=== PATIENT | female | born 1960 | race Caucasian/White ===

== ENCOUNTER → 2016-06-21 | Outpatient (CLI) | payer OTHER ==
[~2016-06-21] MED LIST: ALBUTEROL17 GM INH; CLARITIN10 M3 PO; COCONUT OIL100 GM; DIAZEPAM PO; FLOVENT7.9 GM; GABAPENTIN300 M2 PO; IBUPROFEN600 MG PO; LINZESS145 MCG PO; LIPITOR40 MG PO; MONTELUKAST SOD10 MG PO; OMEPRAZOLE40 M1 PO; PAXIL PO; TEMOVATE 0.05%15 G1 EXT; TRAMADOL HCL50 M1 PO; VITAMIN D350000 UNIT PO; ZANAFLEX PO; ZOFRAN ODT4 M1 PO
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
== END | disposition home or self-care (01) ==
LOC: CRAD 10:27
DX: M54.2 Cervicalgia (principal); M25.511 Pain in right shoulder; M54.5 Low back pain; M41.86 Other forms of scoliosis, lumbar region; M47.816 Spondylosis without myelopathy or radiculopathy, lumbar region; M19.011 Primary osteoarthritis, right shoulder; M47.812 Spondylosis without myelopathy or radiculopathy, cervical region
CPT/HCPCS: 72040; 72100; 73030

== ENCOUNTER → 2016-08-01 | Outpatient (CLI) | payer OTHER ==
--- NOTE | ~2016-08-01 | CT98 ---
[facility] A Service of [facility] & [facility] RADIOLOGY TEXT RESULTS PATIENT: ADAN MCKEON LOCATION: [facility] : 60 UNIT #: [id number] AGE: [address]: DIANE GUPTA SEX: F ORDER DR: [id number] [facility] [address]. [place], [place] [address] [id number] O MR#: [id number] Acc #: [id number] NAME: ADAN MCKEON : 1960 SEX: F STUDY DATE/TIME: 08/01/2016 15:44 UNIT: [facility] ROOM: STUDY DESCRIPTION: CT Lumbar Spine Wo Cont Attending Physician: Vernon Calderón Referring Physician: Vernon Calderón Ordering Physician: Vernon Calderón Primary Care Physician: Vernon Calderón MEDICAL IMAGING REPORT This report is preliminary unless electronic signature is present EXAM Lumbar spine CT no contrast, 08/01/2016 [address]URE Axial unenhanced lumbar CT with multiplanar reformats. This CT exam was performed with one or more of the following radiation dose reduction techniques: automatic exposure control, adjustment of mA and/or kV according to patient size, and iterative reconstruction. COMPARISON None HISTORY Low back pain. Symptoms for 30 years with left greater than right leg pain and intermittent right toe numbness. FINDINGS Alignment is normal. There is mild degenerative change but no fracture or bone erosion or destruction. The paraspinous tissues are unremarkable. At L1-2, there is no canal stenosis or foraminal stenosis. At L2-3, there is a disc bulge and minimal canal narrowing and no foraminal narrowing. At 3-4, again there may be minimal if any discogenic canal narrowing and there is no foraminal narrowing. At 4-5, there is disc and endplate change and facet arthropathy and mild canal stenosis. There is mild or awcy-ch-rujwghor bilateral foraminal narrowing. [facility] A Service of [facility] & [facility] RADIOLOGY TEXT RESULTS PATIENT: ADAN MCKEON LOCATION: [facility] : 60 UNIT #: [id number] AGE: [address]: DIANE GUPTA SEX: F ORDER DR: At 5-1, there is no canal narrowing or foraminal narrowing. IMPRESSION Modest degenerative changes. At 4-5, there is mild canal stenosis and mild or ztva-fv-obcjxzvt bilateral foraminal narrowing. The exam is otherwise essentially unremarkable. No acute-appearing abnormality at any level. Dictated by... Ran Garibay M.D. THIS IS AN ELECTRONICALLY VERIFIED REPORT Ran Garibay M.D. at 08/08/2016 10:40 AM ROB/akanksha TD: 08/02/2016 12:13 JOB #: [id number] MEDICAL IMAGING REPORT Page 1 of 1 COPY
== END | disposition home or self-care (01) ==
LOC: CCAT 14:36
DX: M54.5 Low back pain (principal); M54.2 Cervicalgia; M47.816 Spondylosis without myelopathy or radiculopathy, lumbar region; M48.06 Spinal stenosis, lumbar region
CPT/HCPCS: 72131

== ENCOUNTER → 2016-08-22 | Outpatient (CLI) | payer OTHER ==
--- NOTE | ~2016-08-22 | US5 ---
[facility] A Service of [facility] RADIOLOGY TEXT RESULTS PATIENT: ADAN MCKEON LOCATION: [facility] : 60 UNIT #: [id number] AGE: [address]: Yuval Lowery MD SEX: F ORDER DR: [id number] [facility] [address]. [place], [place] [address] [id number] O MR#: [id number] Acc #: [id number] NAME: ADAN MCKEON : 1960 SEX: F STUDY DATE/TIME: 08/22/2016 9:33 UNIT: [facility] ROOM: STUDY DESCRIPTION: US Abdominal Complete Attending Physician: Yuval Lowery M.D. Referring Physician: Yuval Lowery M.D. Ordering Physician: Yuval Lowery M.D. Primary Care Physician: Vernon Calderón MEDICAL IMAGING REPORT This report is preliminary unless electronic signature is present EXAM Abdominal ultrasound complete 08/22/2016 INDICATIONS 56-year-old female with history of abdominal pain, nausea, vomiting and distension intermittently for 25 years. History of hypertension and hysterectomy. Ascites. TECHNIQUE Sonographic imaging of the abdomen was performed. No comparisons. FINDINGS Segmentally visualized aorta and IVC are unremarkable. Visualized pancreas unremarkable. Liver measures 14.9 cm long axis. No focal liver mass, ascites or intrahepatic ductal dilatation. The gallbladder is sonographically unremarkable. Extrahepatic common bile duct measures approximately 2 mm. The kidneys are unremarkable. The right measures 11 cm long axis and the left 11.9 cm. No shadowing stone on either side. Spleen measures about 9.2 cm long axis. Equivocal mild fatty infiltration of the liver. IMPRESSION 1. Equivocal mild fatty infiltration of the liver otherwise negative abdominal ultrasound. Dictated by... Eduar Vega M.D. THIS IS AN ELECTRONICALLY VERIFIED REPORT Eduar Vega M.D. at 08/22/2016 7:08 PM Arcadio [facility] A Service of [facility] RADIOLOGY TEXT RESULTS PATIENT: ADAN MCKEON LOCATION: [facility] OF [facility] #: [id number] : 60 UNIT #: [id number] AGE: [address]: Yuval Lowery MD SEX: F ORDER DR: TD: 08/22/2016 15:23 JOB #: [id number] MEDICAL IMAGING REPORT Page 1 of 1 COPY
[2016-08-22 10:38] LABS: HEMATOCRIT 41.5 % (35.0-45.0); MEAN CORPUSCULAR HEMOGLOBIN 32.1 PG (28-34); MEAN CORPUSCULAR HGB CONC 33.8 g/dL (30-36); MEAN PLATELET VOLUME 7.6 FL (6.5-11.5); RED BLOOD COUNT 4.37 X10e (3.90-5.30); RED CELL DISTRIBUTION WIDTH 12.8 % (11.0-15.5); WHITE BLOOD COUNT 7.4 X10e3 (4.0-10.5)
[2016-08-22 11:07] LABS: ALBUMIN SERUM 3.8 g/dL (3.5-5.0); BILIRUBIN,TOTAL 0.4 mg/dL (0.2-2.0); BUN/CREATININE RATIO 16.66; CALCIUM SERUM 9.3 mg/dL (8.4-10.2); CREATININE SERUM 0.6 mg/dL (0.6-1.4); GLOM FILT RATE Estimated 101.9 mL/min (>60); POTASSIUM 4.9 mmol/L (3.5-5.1); PROTEIN TOTAL SERUM 6.9 g/dL (6.0-8.3)
== END | disposition home or self-care (01) ==
LOC: CGUS 09:06
PROVIDERS: Internal Medicine
DX: R18.8 Other ascites (principal); R14.0 Abdominal distension (gaseous); K76.0 Fatty (change of) liver, not elsewhere classified
CPT/HCPCS: 36415; 76700; 80053; 85027

== ENCOUNTER → 2016-10-12 | Day surgery (SDC) | payer OTHER ==
--- NOTE | ~2016-10-12 | OR ---
Unit #: [id number] #: [id number] Patient: ADAN MCKEON [id number] [address] [address] [id number] O MR#: [id number] NAME: ADAN MCKEON ROOM: Date of Procedure: 10/12/2016 Admission Date: 10/12/2016 Surgeon: Yuval Lowery M.D. : 1960 Attending Physician: Yuval Lowery M.D. Primary Care Physician: Vernon Calderón OPERATIVE REPORT PROCEDURES PERFORMED 1. Esophagogastroduodenoscopy with biopsy. 2. Colonoscopy to cecum. INDICATIONS FOR PROCEDURE A 56-year-old with history of polyps in multiple previous occasions and also with history of GERD, Savage esophagus, and dysphagia, undergoing evaluation with upper endoscopy and colonoscopy. MEDICATIONS Monitored anesthesia. POSTOPERATIVE FINDINGS 1. Very small area of Savage's appearing mucosa. Biopsies taken in distal esophagus. 2. Gastritis appears chronic, biopsies taken. 3. Normal duodenum and distal duodenum. 4. Colonoscopy completed to cecum. Prep was poor. Some areas were not well visualized. Visualized part of the colonic mucosa was normal with no polyps or masses. PLAN Repeat colonoscopy in 3 to 5 years. Repeat upper endoscopy in 3 to 5 years. Continue PPI therapy and reflux precautions. DESCRIPTION OF PROCEDURE The patient was explained of the procedure, risks, and benefits along with risks and benefits of anesthesia. She was brought to the endoscopy room. Propofol anesthesia was given. Bite block was placed. The scope was passed down the mouth into esophagus, stomach, duodenum, and distal duodenum. Findings as described. Biopsies were taken. Gently, I pulled it out of the patient's mouth. She tolerated it well. At this time, she was turned on, repositioned for colonoscopy. Rectal exam was done, which was normal. Colonoscope was lubricated, passed up the rectum, advanced under direct vision all the way to the cecum. Cecum was identified by ileocecal valve and appendiceal orifice. Some areas could not be visualized though most of the mucosa was normal and healthy. No polyps were seen. I retroflexed in the rectum. Small hemorrhoids seen. Scope was gently pulled out. She tolerated it well. Unit #: [id number] #: [id number] Patient: ADAN MCKEON Dictated by... Radha Hinojosa/keon TD: 10/13/2016 07:31 JOB #: [id number] CC: Ita Sawant M.D. OPERATIVE REPORT Page 1 of 1 X Yuval Lowery MD X PROCEDURE OPERATIVE NOTE
== END | disposition home or self-care (01) ==
LOC: COPS 10:10
DX: K22.70 Barrett's esophagus without dysplasia (principal); K21.0 Gastro-esophageal reflux disease with esophagitis; K29.50 Unspecified chronic gastritis without bleeding; R13.10 Dysphagia, unspecified; Z86.010 Personal history of colon polyps; K64.9 Unspecified hemorrhoids; J44.9 Chronic obstructive pulmonary disease, unspecified; Z86.73 Personal history of transient ischemic attack (TIA), and cerebral infarction without residual deficits
CPT/HCPCS: 88305; 88312

== ENCOUNTER → 2016-10-13 | Outpatient (CLI) | payer OTHER ==
--- NOTE | ~2016-10-13 | CR58 ---
[facility] A Service of [facility] & [facility] RADIOLOGY TEXT RESULTS PATIENT: ADAN MCKEON LOCATION: [facility] : 60 UNIT #: [id number] AGE: [address]: Kiley Bran SEX: F ORDER DR: [id number] [facility] [address] [place], [place] [address] [id number] O MR#: [id number] Acc #: [id number] NAME: ADAN MCKEON : 1960 SEX: F STUDY DATE/TIME: 10/13/2016 11:28 UNIT: [facility] ROOM: STUDY DESCRIPTION: CR Cervical Spine 2 or 3 Views Attending Physician: Iris Ramirez Referring Physician: Iris Ramirez Ordering Physician: Iris Ramirez Primary Care Physician: Ita Sawant M.D. MEDICAL IMAGING REPORT This report is preliminary unless electronic signature is present EXAM Cervical spine 3 views INDICATIONS Posterior neck pain for a year. COMPARISON 06/21/2016 FINDINGS Neutral view demonstrates normal alignment. There is very little motion on flexion extension but there is no evidence of any dynamic instability. IMPRESSION No dynamic instability, although there is very little motion on flexion and extension Dictated by... Damien Rowan M.D. THIS IS AN ELECTRONICALLY VERIFIED REPORT Damien Rowan M.D. at 10/13/2016 5:04 PM ЕКАТЕРИНА/danay TD: 10/13/2016 13:47 JOB #: [id number] MEDICAL IMAGING REPORT Page 1 of 1 COPY
== END | disposition home or self-care (01) ==
LOC: CRAD 11:11
DX: M50.30 Other cervical disc degeneration, unspecified cervical region (principal)
CPT/HCPCS: 72040

== ENCOUNTER → 2016-10-24 | Outpatient (CLI) | payer OTHER ==
--- NOTE | ~2016-10-24 | MY29 ---
[facility] A Service of [facility] RADIOLOGY TEXT RESULTS PATIENT: ADAN MCKEON LOCATION: [facility] : 60 UNIT #: [id number] AGE: [address]: DIANE GUPTA SEX: F ORDER DR: [id number] [facility] [address] [place], [place] [address] [id number] O MR#: [id number] Acc #: [id number] NAME: ADAN MCKEON : 1960 SEX: F STUDY DATE/TIME: 10/24/2016 11:53 UNIT: [facility] ROOM: STUDY DESCRIPTION: MY NOHEMI SCREENING W/ CAD BILAT Attending Physician: Vernon Calderón Referring Physician: Vernon Calderón Ordering Physician: Vernon Calderón Primary Care Physician: Ita Sawant M.D. MEDICAL IMAGING REPORT This report is preliminary unless electronic signature is present EXAM Digital screening mammogram, 10/24/2016 HISTORY 56-year-old woman positive family history, sister age 53. Annual screening. Patient indicates left breast mass 2 years ago. COMPARISON Mammograms now available from [place], [place], 02/18/2010 and 06/10/2014. FINDINGS Digital imaging of each breast was completed utilizing screening protocol. Review includes FDA-approved CAD device. Breast parenchyma is partially fatty replaced. Minimal residual parenchymal densities are stable bilaterally. I see no breast mass. There are no suspicious microcalcifications and no architectural deformity. IMPRESSION Negative mammogram. Annual screening recommended. Patients over the age of 40 are entered into a reminder system with target due date for the next mammogram. A result letter will also be sent to the patient. BIRADS: 1 Negative Dictated by... Jackson Lafleur M.D. THIS IS AN ELECTRONICALLY VERIFIED REPORT Jackson Lafleur M.D. at 11/09/2016 3:13 PM JAYANT/akanksha [facility] A Service of [facility] RADIOLOGY TEXT RESULTS PATIENT: ADAN MCKEON LOCATION: [facility] : 60 UNIT #: [id number] AGE: [address]: DIANE GUPTA SEX: F ORDER DR: TD: 11/09/2016 14:53 JOB #: [id number] MEDICAL IMAGING REPORT Page 1 of 1 COPY
== END | disposition home or self-care (01) ==
LOC: CWCC 11:15
DX: Z12.31 Encounter for screening mammogram for malignant neoplasm of breast (principal); Z80.3 Family history of malignant neoplasm of breast
CPT/HCPCS: G0202

== ENCOUNTER → 2016-11-14 | Outpatient (CLI) | payer OTHER ==
--- NOTE | ~2016-11-14 | CT2 ---
[facility] A Service of [facility] RADIOLOGY TEXT RESULTS PATIENT: ADAN MCKEON [facility] : 60 UNIT #: [id number] AGE: [address]: Yuval Lowery MD SEX: F ORDER DR: [id number] [facility] [address] [place], [place] [address] [id number] O MR#: [id number] Acc #: [id number] NAME: ADAN MCKEON : 1960 SEX: F STUDY DATE/TIME: 11/14/2016 10:31 UNIT: [facility] ROOM: STUDY DESCRIPTION: CT Abd and Pelv W Cont Attending Physician: Yuval Lowery M.D. Referring Physician: Yuval Lowery M.D. Ordering Physician: Yuval Lowery M.D. Primary Care Physician: Ita Sawant M.D. MEDICAL IMAGING REPORT This report is preliminary unless electronic signature is present EXAM CT abdomen and pelvis with contrast INDICATION Right-sided abdominal pain and distension for the past 2 months. PROCEDURE Contrast-enhanced CT of the abdomen and pelvis. This CT examination was performed with one or more of the following radiation dose reduction techniques: automatic exposure control, adjustment of mA and/or kV according to patient size, and iterative reconstruction. COMPARISON None. FINDINGS ABDOMEN WITH CONTRAST: Liver borderline enlarged at 18.8 cm. No liver or splenic mass. Kidneys, adrenal glands, pancreas and gallbladder unremarkable. Bowel loops are nondilated. The appendix is normal. Moderate colonic stool. PELVIS WITH CONTRAST: Previous hysterectomy. No pelvic mass or fluid. No aggressive appearing bone lesion. IMPRESSION 1. No acute findings in the abdomen or pelvis. 2. Moderate colonic stool burden. 3. Borderline hepatomegaly. Dictated by... Peter Davies M.D. [facility] A Service [facility] RADIOLOGY TEXT RESULTS PATIENT: ADAN MCKEON LOCATION: [facility] : 60 UNIT #: [id number] AGE: [address]: Yuvla Lowery MD SEX: F ORDER DR: THIS IS AN ELECTRONICALLY VERIFIED REPORT Peter Davies M.D. at 11/15/2016 10:13 AM JUSTINE/pallavi TD: 11/14/2016 14:07 JOB #: [id number] MEDICAL IMAGING REPORT Page 1 of 1 COPY
[2016-11-14 11:31] LABS: POC - CREATININE 0.68 mg/dL (0.44-1.03); POC - GFR >60.0 mL/min (>60)
== END | disposition home or self-care (01) ==
LOC: CCAT 08:38
PROVIDERS: Internal Medicine
DX: R10.84 Generalized abdominal pain (principal); R14.0 Abdominal distension (gaseous); R16.0 Hepatomegaly, not elsewhere classified
CPT/HCPCS: 74177; 82565; Q9967